=== PATIENT | female | born 1995 | race Hispanic/Latino ===

== ENCOUNTER 2019-03-27 23:15 | Inpatient (IN) | payer SELFPAY ==
[~2019-03-27] VITALS: Ht 154.9 cm; Wt 54.9 kg
[2019-03-27] MEDS ORDERED: LACTATED RINGERS 1000ML 1,000 ML IV PRN (23:45)
[2019-03-27 23:47] VITALS: BP 118/68
[2019-03-28 00:13] LABS: APPEARANCE,URINE Clear (CLEAR); BILIRUBIN,URINE Negative (NEGATIVE); COLOR,URINE Dark Yellow (YELLOW); GLUCOSE, URINE (UA) Negative (NEGATIVE); KETONES,URINE Negative (NEGATIVE); LEUKOCYTE ESTERASE ,URINE Negative (NEGATIVE); NITRATE,URINE Negative (NEGATIVE); OCCULT BLOOD,URINE Negative (NEGATIVE); PH,URINE 6.5 (5.0-8.0); PROTEIN,URINE POS 1+ mg/dL (NEGATIVE)
[2019-03-28 00:16] LABS: AMPHET/METH SCREEN,URINE NEGATIVE (NEGATIVE); BARBITURATE SCREEN, URINE NEGATIVE (NEGATIVE); BENZODIAZEPINES SCREEN,URINE NEGATIVE (NEGATIVE); CANNABINOID SCREEN,URINE NEGATIVE (NEGATIVE); COCAINE SCREEN,URINE NEGATIVE (NEGATIVE); OPIATE SCREEN,URINE NEGATIVE (NEGATIVE); PHENCYCLIDINE SCREEN,URINE NEGATIVE (NEGATIVE)
[2019-03-28 00:29] LABS: BACTERIA,URINE None Seen /HPF (None Seen); RBC,URINE None Seen /HPF (0-1); SQUAMOUS EPITHELIAL CELL,UR Rare /HPF (0-2); WBC,URINE None Seen /HPF (0-1)
[2019-03-28] MEDS ORDERED: AMPICILLIN 2GM+NS 100ML 100 ML IV SCH (00:30)
[2019-03-28] MEDS ORDERED: ROPIVACAINE 0.2% 100ML VIAL 100 ML EP PRN (00:30)
[2019-03-28] MEDS ORDERED: BUTORPHANOL TARTRATE 2 MG/ML IVP PRN (00:30)
[2019-03-28] MEDS ORDERED: NALOXONE HCL 0.4 MG/1 ML ML IV PRN (00:30)
[2019-03-28] MEDS ORDERED: LACTATED RINGERS 500 ML 500 ML IV PRN (00:30)
[2019-03-28] MEDS ORDERED: EPHEDRINE SULFATE 50 MG/ML AMPULE IVP PRN (00:30)
[2019-03-28 00:41] LABS: HEMATOCRIT 34.7 % (36-48); MEAN CORPUSCULAR HEMOGLOBIN 30.4 pg (27.0-33.0); MEAN CORPUSCULAR VOLUME 95.1 fL (79-99); PLATELET COUNT (AUTO) 111 K/uL (130-400); RED BLOOD CELL COUNT(AUTO) 3.65 MIL/uL (4.00-5.50); RED CELL DISTRIBUTION WIDTH 12.7 % (11.0-15.5); WHITE BLOOD COUNT (AUTO) 6.9 K/uL (4.8-10.8)
[2019-03-28] MEDS ORDERED: AMPICILLIN 2GM+NS 100ML 100 ML IV ONE (01:26)
[2019-03-28] MEDS: LACTATED RINGERS 1000ML 1,000 ML IV PRN ×2 (01:33→05:54)
[2019-03-28] MEDS ORDERED: FENTANYL CITRATE PF 50 MCG/1 ML 2ML VIAL ONE (01:42)
[2019-03-28] MEDS ORDERED: OXYTOCIN-LR 20 UNITS/1000 ML 1,000 ML IV ONE ×2 (03:50→11:37)
[2019-03-28] MEDS ORDERED: OXYTOCIN 10 USP UNITS/ML 20 UNIT in LACTATED RINGERS 1000ML 1,000 ML IV SCH (04:00)
[2019-03-28] MEDS: AMPICILLIN 1GM+NS 50ML 50 ML IV SCH ×2 (05:54→20:30)
[2019-03-28 08:20] LABS: RAPID PLASMA REAGIN NONREACTIVE (NONREACTIVE)
[2019-03-28] MEDS ORDERED: MEASLES/MUMPS/RUBELLA VACCINE, LIVE 0.5 ML/VIAL SQ PRN (11:30)
[2019-03-28] MEDS ORDERED: OXYTOCIN-LR 20 UNITS/1000 ML 1,000 ML IV SCH (11:30)
[2019-03-28] MEDS ORDERED: BENZOCAINE/LANOLIN/ALOE VERA 60 ML AEROSOL TP PRN (11:30)
[2019-03-28] MEDS ORDERED: ACETAMINOPHEN 325 MG TAB PO PRN (11:30)
[2019-03-28] MEDS ORDERED: DIPH,PERTUSS(ACELL),TET VAC/PF 0.5 ML VIAL IM PRN (11:30)
[2019-03-28] MEDS ORDERED: LANOLIN 30GM OINTMENT TP PRN (11:30)
[2019-03-28] MEDS ORDERED: WITCH HAZEL 1 PAD TP PRN (11:30)
[2019-03-28] MEDS ORDERED: ACETAMINOPHEN-CODEINE 300/30MG TAB PO PRN (11:30)
[2019-03-28 13:45] VITALS: BP 139/82
[2019-03-28] MEDS: IBUPROFEN 600 MG TABLET PO PRN (15:27)
[2019-03-28] MEDS ORDERED: FERR325T22 PO (15:54)
[2019-03-28] MEDS ORDERED: PREN-134 PO (15:54)
[2019-03-28 19:29] VITALS: BP 131/87
[2019-03-28] MEDS: DOCUSATE SODIUM 100 MG CAP PO SCH (21:04)
[2019-03-28 22:53] VITALS: BP 115/72
[2019-03-28 22:55] VITALS: BP 115/58
[2019-03-29] MEDS: AMPICILLIN 1GM+NS 50ML 50 ML IV SCH ×2 (00:30→13:13)
[2019-03-29] MEDS: IBUPROFEN 600 MG TABLET PO PRN ×2 (01:26→08:42)
[2019-03-29 03:43] VITALS: BP 112/61
[2019-03-29 07:22] VITALS: BP 110/71
[2019-03-29] MEDS ORDERED: FLU VACC QS2019-20 36MOS UP/PF 60 MCG/0.5 ML ML IM ONE (07:30)
--- NOTE | 2019-03-29 07:40 | NUR ---
PATIENT ASSESSED AND VERBALIZES LAST BM AFTER DELIVERY WAS HER LAST BM. PATIENT STABLE AND DENIES ANY FURTHER FEVERS OR FEELING SICK. VITAL SIGNS ARE STABLE. PATIENT MADE AWARE OF DISCHARGE ORDER AND VERBALIZED UNDERSTANDING.
[2019-03-29] MEDS ORDERED: FLU VACC QS2019-20 36MOS UP/PF 60 MCG/0.5 ML ML IM SCH (07:45)
[2019-03-29] MEDS: DOCUSATE SODIUM 100 MG CAP PO SCH (08:42)
[2019-03-29 11:36] VITALS: BP 109/69
--- NOTE | 2019-03-29 12:30 | NUR ---
PATIENT WAS GIVEN DISCHARGE INSTRUCTIONS AT THIS TIME. PATIENT HAS REMAINED AFEBRILE AND VERBALIZES FEELING MUCH BETTER AND VITAL SIGNS HAVE STABILIZED. PATIENT IS NO LONGER VOIDING EVERY 30 TO 60 MINUTES. SCRIPT FOR MOTRIN GIVEN FOR PAIN. Addendum: 03/29/19 at 1359 by STEWART WORTHY RN SALINE LOCK REMOVED AND SITE WNL.
--- NOTE | 2019-03-29 13:45 | NUR ---
PATIENT WAS TAKEN VIA W/C TO FAMILY VEHICLE. BABY WAS NOT DISCHARGED DUE TO PATIENT BEING A DROP IN AND NO RECORDS ON PATIENT. PATIENT DISCHARGED TO HER MOTHER AND HAS REMAINED AFEBRILE FOR 24 HOURS.
[2019-03-31 04:08] LABS: HEPATITIS Bs ANTIGEN SCREEN P Negative (Negative)
== END 2019-03-29 13:45 | disposition home or self-care (01) | DRG 807 ==
LOC: EDH 23:15 → LDH 23:16 → OBSVTOIN 23:16 → WSH 03-28 13:31
PROVIDERS: ADMIT Obstetrics & Gynecology; ATTEND Obstetrics & Gynecology
PROC: 10E0XZZ Delivery of Products of Conception, External Approach (ICD-10-PCS; principal; 2019-03-28)
PROC: 0KQM0ZZ Repair Perineum Muscle, Open Approach (ICD-10-PCS; 2019-03-28)
PROC: 10907ZC Drainage of Amniotic Fluid, Therapeutic from Products of Conception, Via Natural or Artificial Opening (ICD-10-PCS; 2019-03-28)
PROC: 3E0R3BZ Introduction of Anesthetic Agent into Spinal Canal, Percutaneous Approach (ICD-10-PCS; 2019-03-28)
PROC: 00HU33Z Insertion of Infusion Device into Spinal Canal, Percutaneous Approach (ICD-10-PCS; 2019-03-28)
PROC: 3E02340 Introduction of Influenza Vaccine into Muscle, Percutaneous Approach (ICD-10-PCS; 2019-03-28)
PROC: 3E0234Z Introduction of Serum, Toxoid and Vaccine into Muscle, Percutaneous Approach (ICD-10-PCS; 2019-03-28)
PROC: 3E0134Z Introduction of Serum, Toxoid and Vaccine into Subcutaneous Tissue, Percutaneous Approach (ICD-10-PCS; 2019-03-28)
DX: O69.1XX0 Labor and delivery complicated by cord around neck, with compression, not applicable or unspecified (principal); Z37.0 Single live birth; O70.1 Second degree perineal laceration during delivery; Z3A.40 40 weeks gestation of pregnancy; Z23 Encounter for immunization
CPT/HCPCS: 36415; 76805; 80305; 81001; 85027; 86592; 86701; 86850; 86900; 86901; 87340; 87390; 90707; 90715; A4314; G0378; J0290; J2590; J2795; J3010; J7120; Q2035